=== PATIENT | male | born 1955 | race Caucasian/White ===

== ENCOUNTER 2023-08-18 08:41 | Outpatient (CLI) | payer OTHER, SELFPAY ==
--- NOTE | 2023-08-18 08:47 | US_ITS ---
WS: [id number] RENAL ULTRASOUND HISTORY: R URETERAL STONE COMPARISON: None available. TECHNIQUE: 2-D and color Doppler imaging of the kidney submitted. Right kidney: 8.7 cm x 5.2 cm x 5.1 cm. Cortex: 1.3 cm Mild renal atrophy. No thinning of the cortex or hydronephrosis. No mass. Left kidney: 9.0 cm x 4.8 cm x 4.4 cm. Cortex: 1.0 cm Low normal size kidney. There is a small cyst in the medial mid kidney measuring 1.0 x 0.8 x 0.7 cm. No cortical thinning. No hydronephrosis. Aorta: Normal. Urinary Bladder: Urinary bladder is only mildly distended. IMPRESSION: 1. No solid renal mass or hydronephrosis. 2. Mild renal atrophy RIGHT kidney and low normal size LEFT kidney. No cortical thinning. 3. Simple cyst LEFT kidney.
--- NOTE | 2023-08-18 09:31 | XR_ITS ---
WS: [id number] Exam: XR KUB [id number] Date/Time of Exam: 08/18/2023 9:31 AM Reason For Exam: R URETERAL STONE No bowel obstruction or free air. No sign of organ enlargement. Large amount of stool in the RIGHT co mookie. Marked degenerative change of the lumbar spine and levoscoliosis. IMPRESSION: 1. No acute process identified. 2. Large amount of stool in the RIGHT colon.
== END 2023-08-18 08:42 | disposition home or self-care (01) ==
LOC: RAD 08:42
PROVIDERS: Family Provider Family Medicine; PCP Family Medicine; Visit Provider Urology
DX: N28.1 Cyst of kidney, acquired (principal); N26.1 Atrophy of kidney (terminal)
CPT/HCPCS: 74018; 76770

== ENCOUNTER 2023-09-27 06:00 | Outpatient (RCR) | payer MEDICARE, SELFPAY | END 2023-10-17 23:59 | disposition home or self-care (01) | LOC: GPT 06:00 | PROVIDERS: Visit Provider Neurological Surgery | DX: M47.27 Other spondylosis with radiculopathy, lumbosacral region (principal) | CPT/HCPCS: 97110; 97112; 97140; 97163 ==

== ENCOUNTER 2023-10-18 06:00 | Outpatient (RCR) | payer MEDICARE, SELFPAY | END 2023-11-17 23:59 | disposition home or self-care (01) | LOC: GPT 06:00 | PROVIDERS: Visit Provider Neurological Surgery | DX: M47.27 Other spondylosis with radiculopathy, lumbosacral region (principal) | CPT/HCPCS: 97110 ==

== ENCOUNTER 2023-11-18 06:00 | Outpatient (RCR) | payer MEDICARE, SELFPAY | END 2023-11-27 23:59 | disposition home or self-care (01) | LOC: GPT 06:00 | PROVIDERS: Visit Provider Neurological Surgery | DX: M54.16 Radiculopathy, lumbar region (principal) | CPT/HCPCS: 97110; 97164 ==

== ENCOUNTER 2024-02-13 08:41 | Outpatient (CLI) | payer MEDICARE, SELFPAY ==
--- NOTE | 2024-02-13 08:43 | USR_ITS ---
PROCEDURE INFORMATION: Exam: US Retroperitoneal, Complete, Kidneys and Bladder Exam date and time: 02/13/2024 8:54 AM Age: 68 years old Clinical indication: Condition or disease; Kidney or ureter condition; Calculus (stone) in ureter; Additional info: R ureteral stone, PT having xray too TECHNIQUE: Imaging protocol: Real-time ultrasound of the retroperitoneum with image documentation. Complete exam focused on the bilateral kidneys and urinary bladder. COMPARISON: US renal BI* [id number] 08/18/2023 9:10 AM FINDINGS: Right kidney: Normal. No stones. No hydronephrosis. Small cysts. Left kidney: Normal. No stones. No hydronephrosis. Small cysts. Urinary bladder: Unremarkable. US/US renal BI* [id number] IMPRESSION: Unremarkable kidneys and bladder.
--- NOTE | 2024-02-13 08:48 | XR_ITS ---
WS: [email or web address] Exam: XR KUB [id number] Date/Time of Exam: 02/13/2024 8:51 AM Reason For Exam: R URETERAL STONE No bowel obstruction or free air. No sign of organ enlargement. Tiny calcifications superimpose both kidneys and may represent renal calculi. Advanced degenerative change of the lumbar spine with spondy losis and levoscoliosis. XR/XR KUB [id number] IMPRESSION: 1. No acute abdominal process. 2. Tiny calcifications superimpose both renal silhouettes and may represent jatin al calculi. 3. Advanced degenerative changes of the lumbar spine and scoliosis.
== END 2024-02-13 08:42 | disposition home or self-care (01) ==
PROVIDERS: PCP Family Medicine; Visit Provider Urology
DX: N20.1 Calculus of ureter (principal)
CPT/HCPCS: 74018; 76770

== ENCOUNTER 2025-01-30 10:01 | Outpatient (CLI) | payer MEDICARE, SELFPAY ==
--- NOTE | 2025-01-30 10:33 | XR_ITS ---
WS: [id number] KUB, AP view, 01/30/2025 Clinical Data: NEPHROLITHIASIS Comparison: KUB, 02/13/2024 Findings: No abnormal intraabdominal masses are seen. There is no dilatated small bowel or evidence of obstruction. There are small calcifications overlying the inferior pole of the left kidney. There may be a calcification overlying the inferior pole of the right kidney. 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 XR/XR KUB [id number] Impression: Tiny calcifications may overlie both kidneys.
== END 2025-01-30 10:02 | disposition home or self-care (01) ==
PROVIDERS: PCP Family Medicine; Visit Provider Urology
DX: N20.0 Calculus of kidney (principal); M41.9 Scoliosis, unspecified; M47.816 Spondylosis without myelopathy or radiculopathy, lumbar region
CPT/HCPCS: 74018